=== PATIENT | female | born 1980 | race Asian ===

== ENCOUNTER 2020-04-30 13:44 | Emergency (ER) | payer BC ==
[~2020-04-30] VITALS: Ht 167.6 cm; Wt 65.2 kg
[~2020-04-30 13:44] MED LIST: HYDR1TAB13 PO; IBUP-1222 PO
--- NOTE | 2020-04-30 13:54 | NUR ---
EKG IN TRIAGE Addendum: 04/30/20 at 1406 by MARLA DENIES RASH ITCHINESS
--- NOTE | 2020-04-30 14:03 | NUR ---
WAS ON BACTRIM FOR 8 DAYS, PROVIDER ADDED CEFDINIR YESTERDAY. TOOK ONE DOSE OF CEFDINIR LAST NOC (HAS HAD MED BEFORE) WOKE W/ FEVER (100). CURRENTLY HAS BACK PAIN, LT SIDED NECK PAIN. NO ANTIPYRETIC TAKEN TODAY. DENIES N/V, DYSPNEA. C/O MALAISE, FATIGUE.
[2020-04-30] MEDS ORDERED: CEFD300C37 PO (14:08)
[2020-04-30] MEDS ORDERED: SULF1TAB24 PO (14:08)
[2020-04-30] MEDS ORDERED: TRAZ150T62 PO (14:08)
[2020-04-30] MEDS ORDERED: MELA5TAB14 PO (14:08)
[2020-04-30 14:51] LABS: MICROSCOPIC NOT IND
[2020-04-30 15:01] LABS: BASOPHILS # (AUTO) 0.01 x10^3/uL (0-0.1); BASOPHILS % (AUTO) 0 % (0-1); EOSINOPHILS # (AUTO) 0.09 x10^3/uL (0-0.4); EOSINOPHILS % (AUTO) 2 % (1-7); LYMPHOCYTES # (AUTO) 0.67 x10^3/uL (1-3.4); LYMPHOCYTES % (AUTO) 16 % (22-44); MD NO; MEAN CORPUSCULAR HEMOGLOBIN 31.6 pg (27.0-34.8); MEAN CORPUSCULAR HGB CONC 34.2 g/dL (32.4-35.8); MEAN CORPUSCULAR VOLUME 92.3 fL (80-100); MEAN PLATELET VOLUME 10.3 fL (7.4-10.4); MONOCYTES # (AUTO) 0.26 x10^3/uL (0.2-0.8); MONOCYTES % (AUTO) 6 % (2-9); NEUTROPHILS # (AUTO) 3.22 x10^3/uL (1.8-6.8); NEUTROPHILS % (AUTO) 76 % (42-75); PLATELET COUNT 127 x10^3/uL (130-400); RED BLOOD COUNT 4.58 x10^6/uL (3.82-5.3); RED CELL DISTRIBUTION WIDTH 12.5 % (9.6-15.2)
--- NOTE | 2020-04-30 15:04 | NUR ---
PT REQUESTING TYLENOL; WILL NOTIFY ERP
[2020-04-30 15:11] LABS: ALANINE AMINOTRANSFERASE 75 U/L (12-78); ALBUMIN 4.3 g/dL (3.4-5.0); ANION GAP 7 mmol/L (5-15); CALCIUM 8.8 mg/dL (8.5-10.1); CHLORIDE 102 mmol/L (98-107); CREATININE 0.84 mg/dL (0.55-1.02)
[2020-04-30 15:13] LABS: ALKALINE PHOSPHATASE 100 U/L (45-117); BILIRUBIN,TOTAL 0.5 mg/dL (0.2-1.0); TOTAL PROTEIN 8.8 g/dL (6.4-8.2)
[2020-04-30] MEDS ORDERED: ACETAMINOPHEN 325 MG TABLET PO ONE (15:30)
[2020-04-30] MEDS ORDERED: ACETAMINOPHEN 325 MG TABLET ONE (15:43)
--- NOTE | 2020-04-30 15:52 | NUR ---
TYLENOL GIVEN PER EMAR
[2020-04-30] MEDS ORDERED: DIPHENHYDRAMINE 50 MG/ML, 1ML ONE (17:44)
[2020-04-30] MEDS ORDERED: DIPHENHYDRAMINE 25 MG CAPSULE ONE (17:59)
[2020-04-30] MEDS ORDERED: DIPHENHYDRAMINE 50 MG/ML, 1ML IM ONE (18:00)
[2020-04-30] MEDS ORDERED: DIPHENHYDRAMINE 25 MG CAPSULE PO ONE (18:00)
--- NOTE | 2020-04-30 18:08 | NUR ---
SUSAN GONZALEZ AWARE OF PT STATUS. PT CARE TRANSFERRED.
--- NOTE | 2020-04-30 18:19 | NUR ---
ASSUMED CARE OF PATIENT. REPORT GIVEN SUSAN AMAYA. PT WANTS A RAPID COVID TEST. DR FLETCHER AWARE.
--- NOTE | 2020-04-30 19:08 | NUR ---
DR FLETCHER IN ROOM UPDATING PATIENT.
[2020-04-30 19:37] VITALS: BP 118/70
== END 2020-04-30 19:39 | disposition home or self-care (01) ==
LOC: ED 14:55
DX: R50.9 Fever, unspecified (principal); Z20.828 Contact with and (suspected) exposure to other viral communicable diseases; R21 Rash and other nonspecific skin eruption; R10.2 Pelvic and perineal pain; R39.15 Urgency of urination; R00.0 Tachycardia, unspecified
CPT/HCPCS: 36415; 71045; 80053; 81003; 83605; 85025; 86308; 87040; 87635; 93005; 99285; J7512; Q0163